=== PATIENT | male | born 1960 | race Hispanic/Latino ===

== ENCOUNTER → 2017-08-31 | Outpatient (CLI) | payer BC ==
[~2017-08-31] MED LIST: IOPAMIDOL 370 MG/ML 200 ML INFUS..BTL INJ ONE; SODIUM CHLORIDE 0.9% 50ML 50 ML ONE
[2017-08-31 15:29] LABS: BLOOD UREA NITROGEN 13 mg/dL (7-26); BUN/CREATININE RATIO 14 (6-25); CREATININE, SERUM 0.91 mg/dL (0.72-1.25); EST GLOMERULAR FILTRATION RATE > 60 ML/MIN (60-)
--- NOTE | 2017-08-31 18:52 | Diagnostic Imaging Report ---
EXAM: CT Abdomen WITHOUT and WITH contrast INDICATION: COMPARISON: None. TECHNIQUE: Abdomen was scanned utilizing a multidetector helical scanner from the lung base to the iliac crests before and after administration of IV contrast. Coronal and sagittal reformations were obtained. Pancreas mass protocol was performed. Scan was performed pre- through the liver, arterial phase through the liver and venous phase through the abdomen IV CONTRAST: 100 mL of Isovue 300 ORAL CONTRAST: Water COMPLICATIONS: None FINDINGS: LINES and TUBES: None. LOWER THORAX: Unremarkable HEPATOBILIARY: Diffuse hepatic steatosis. 1.7 cm fluid density simple cyst in hepatic segment II (series 3, image 77). 0.9 cm fluid density simple cyst in hepatic segment VIII (series 3, image 78). Subcentimeter hypodensity in hepatic segment VII (series 3, image 80), which is too small to characterize but likely represents a small cyst. Calcified granuloma in hepatic segment VII (series 3, image 76). No biliary ductal dilation. GALLBLADDER: No radio-opaque stones or sludge. No wall thickening. SPLEEN: No splenomegaly. PANCREAS: Normal pancreatic parenchymal enhancement. No peripancreatic fat stranding/inflammatory changes or free fluid. No ductal dilation. There is an approximately 4.7 x 2.6 x 3.1 cm lobulated nonenhancing fluid density lesion with questionable thin septation with perceived but not measurable enhancement in the uncinate process (series 3, image 102 and sagittal venous image 66). No enhancing mural nodules are identified. No internal or peripheral calcifications. This lesion measured approximately 2.3 x [address] dated 10/09/2010. No other focal lesions. ADRENALS: No adrenal nodules KIDNEYS/URETERS: Kidneys enhance symmetrically. 1.9 x 2.0 x 2.4 cm heterogeneously enhancing mass in the anterior interpolar right kidney (series 3, image 96 and venous sagittal image 88). No other solid masses. 3-4 mm nonobstructing calculus in the superior right kidney (series 2, image 25). 3 mm nonobstructing calculus in the right interpolar region (series 2, image 30) . 8 mm nonobstructing calculus in the mid to inferior left kidney (series 2, image 26). Punctate nonobstructing calculus in the left inferior pole (series 2, image 30). No ureteral calculi, hydronephrosis or obstruction. GI TRACT: No bowel dilation or evidence of obstruction. No pericolonic inflammatory changes. Scattered diverticula in the descending colon, without diverticulitis. Appendix is normal. LYMPH NODES: No lymphadenopathy. VESSELS: Celiac trunk, superior and inferior mesenteric and bilateral renal arteries are patent. Accessory right renal artery to the inferior pole. Portal, superior mesenteric and splenic veins are patent. PERITONEUM / RETROPERITONEUM: No free air or fluid. BONES: No aggressive lytic lesions. Degenerative changes in the lower lumbosacral spine. SOFT TISSUES: Unremarkable. IMPRESSION: 1. No CT evidence of pancreatitis. Please note that the pancreas may have a normal CT appearance in cases of mild pancreatitis 2. Lobulated 4.7 cm nonenhancing fluid density lesion in the pancreatic uncinate process. Differential diagnosis includes serous cystadenoma, given the questionable thin septations and increase in size, pseudocyst (particularly if there is prior history of pancreatitis), mucinous cystic neoplasm or IPMN. Recommend contrast enhanced MRI abdomen for further evaluation. 3. 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 4. Bilateral nonobstructing renal calculi, as described. No ureteral calculi, hydronephrosis or obstruction. 5. Diffuse hepatic steatosis. Signed by: Dr. Gerhard Flores M.D. on 08/31/2017 6:48 PM
== END ==
LOC: CT 14:23
PROVIDERS: ATTEND Internal Medicine Gastroenterology
DX: R74.8 Abnormal levels of other serum enzymes (principal)
CPT/HCPCS: 36415; 74170; 82565; 84520; Q9967

== ENCOUNTER 2022-06-13 05:34 | Observation (INO) | payer BC, OTHER ==
[~2022-06-13] VITALS: Ht 180.3 cm; Wt 101.6 kg
[2022-06-13] MEDS ORDERED: HYDRALAZINE HCL 20 MG/ML VIAL IV ONE (06:00)
[2022-06-13] MEDS ORDERED: ASPIRIN 81 MG CHEW TAB PO STA (06:25)
[2022-06-13] MEDS ORDERED: ASPIRIN 81 MG CHEW TAB ONE (06:45)
[2022-06-13] MEDS ORDERED: POTASSIUM CHLORIDE 10MEQ EA PO ONE (07:00)
[2022-06-13] MEDS ORDERED: POTASSIUM CHLORIDE 20 MEQ TAB CR PO STA (07:06)
[2022-06-13] MEDS ORDERED: ASPIRIN 81 MG CHEW TAB PO ONE (07:30)
[2022-06-13] MEDS ORDERED: SODIUM CHLORIDE FLUSH 10 ML SYR INJ PRN (07:30)
[2022-06-13 09:23] VITALS: BP 146/97
[2022-06-13 09:54] VITALS: BP 146/97
[2022-06-13] MEDS ORDERED: DOXAZOSIN MESYLA2 MG PO (10:29)
[2022-06-13] MEDS ORDERED: METFORMIN HCL500 MG PO (10:29)
[2022-06-13] MEDS ORDERED: bethanechol PO (10:29)
[2022-06-13] MEDS ORDERED: BETHANECHOL CHLORIDE PO (10:29)
[2022-06-13] MEDS ORDERED: NIFEDIPINE ER30 M1 PO (10:29)
[2022-06-13 11:37] LABS: CREATINE KINASE 78 IU/L (30-200)
[2022-06-13 12:19] VITALS: BP 123/82
[2022-06-13] MEDS ORDERED: CLOPIDOGREL BISULFATE 75 MG TAB PO ONE (14:30)
[2022-06-13] MEDS ORDERED: DOCUSATE SODIUM 100 MG CAP PO PRN (15:00)
[2022-06-13] MEDS ORDERED: SIMETHICONE 80 MG CHEW PO PRN (15:00)
[2022-06-13] MEDS ORDERED: MELATONIN 5 MG TABLET PO PRN (15:00)
[2022-06-13] MEDS ORDERED: LIDOCAINE 4% PATCH TP PRN (15:00)
[2022-06-13] MEDS ORDERED: POTASSIUM CHLORIDE 20 MEQ TAB CR PO PRN (15:00)
[2022-06-13] MEDS ORDERED: ALBUTEROL/IPRATROPIUM 3 ML NEB NEB PRN (15:00)
[2022-06-13] MEDS ORDERED: DIPHENHYDRAMINE HCL 25 MG CAP PO PRN (15:00)
[2022-06-13] MEDS ORDERED: ACETAMINOPHEN 325 MG TAB PO PRN (15:00)
[2022-06-13] MEDS ORDERED: DEXTROSE 50% SYRINGE 50 ML IV PRN ×2 (15:00)
[2022-06-13] MEDS ORDERED: ONDANSETRON HCL INJ 2MG/ML 2ML 2 MG/ML VIAL IV PRN (15:00)
[2022-06-13] MEDS ORDERED: HYDROCODONE/APAP 5MG-325MG TAB PO PRN (15:00)
[2022-06-13] MEDS ORDERED: BENZONATATE 100 MG CAP PO PRN (15:00)
[2022-06-13 15:57] VITALS: BP 131/84
[2022-06-13] MEDS: INSULIN LISPRO 100 UNIT/1 ML 3ML VIAL SQ SCH ×2 (16:49→20:29)
[2022-06-13] MEDS: LORATADINE 10 MG TAB PO SCH (16:51)
[2022-06-13] MEDS ORDERED: ENOXAPARIN SOD INJ 40 MG/0.4 ML SYR SC SCH (17:00)
[2022-06-13 17:50] LABS: CREATINE KINASE 57 IU/L (30-200)
[2022-06-13] MEDS: FLUTICASONE PROPIONATE NASAL SPRAY NS SCH (18:12)
[2022-06-13 19:56] VITALS: BP 136/86
[2022-06-13 20:07] VITALS: BP 136/86
[2022-06-13] MEDS ORDERED: NIFEDIPINE CR 30 MG TAB PO SCH (21:00)
[2022-06-13] MEDS ORDERED: DOXAZOSIN MESYLATE 2 MG TAB PO SCH (21:00)
[2022-06-14] VITALS: BP 126/80
[2022-06-14 00:26] LABS: CREATINE KINASE 44 IU/L (30-200)
[2022-06-14 04:00] VITALS: BP 167/84
[2022-06-14 05:11] LABS: BASOPHILS % 0.5 % (0.0-1.0); EOSINOPHILS # (AUTO) 0.7 (0.0-0.4); EOSINOPHILS % 9.2 % (0.0-6.0); HEMATOCRIT 41.7 % (38.2-49.6); HEMOGLOBIN 13.8 g/dL (14.0-18.0); LYMPHOCYTES # (AUTO) 1.9 (1.0-3.2); LYMPHOCYTES % 24.2 % (18.0-39.1); MEAN CORPUSCULAR HEMOGLOBIN 28.3 pg (28-32); MEAN CORPUSCULAR HGB CONC 33.1 g/dL (31-35); MEAN CORPUSCULAR VOLUME 85.5 fL (81-99); MONOCYTES # (AUTO) 0.6 (0.2-0.8); MONOCYTES % 7.4 % (4.4-11.3); NEUTROPHILS # (AUTO) 4.6 (2.1-6.9); NEUTROPHILS % 58.4 % (38.7-80.0); PLATELET COUNT 273 x10e3/uL (140-360); RED BLOOD COUNT 4.88 x10e6/uL (4.3-5.7); RED CELL DISTRIBUTION WIDTH 14.7 % (11.7-14.4)
[2022-06-14 05:38] LABS: ALBUMIN 3.4 g/dL (3.5-5.0); ALBUMIN/GLOBULIN RATIO 1.1 (0.8-2.0); ANION GAP 13.3 mmol/L (8-16); CALCIUM 8.9 mg/dL (8.4-10.2); CREATININE, SERUM 0.89 mg/dL (0.72-1.25); POTASSIUM 3.3 mmol/L (3.5-5.1)
[2022-06-14 05:39] LABS: CHOL/HDL RATIO 4.2 (3.9-4.7); MAGNESIUM 1.8 MG/DL (1.3-2.1); PHOSPHORUS 2.8 MG/DL (2.3-4.7)
[2022-06-14 06:01] LABS: THYROID STIMULATING HORMONE 0.595 uIU/mL (0.350-4.940)
[2022-06-14] MEDS ORDERED: PANTOPRAZOLE SOD 40 MG TABEC PO SCH (07:30)
[2022-06-14 08:51] VITALS: BP 131/83
[2022-06-14] MEDS ORDERED: ASPIRIN 81 MG ENTERIC COATED PO SCH (09:00)
[2022-06-14] MEDS ORDERED: NIFEDIPINE CR 30 MG TAB PO SCH (09:00)
[2022-06-14] MEDS ORDERED: CLOPIDOGREL BISULFATE 75 MG TAB PO SCH (09:00)
[2022-06-14] MEDS ORDERED: METOPROLOL SUCCINATE 25 MG TAB XL PO SCH (09:00)
[2022-06-14] MEDS ORDERED: LOSARTAN POTASSIUM 100 MG TAB PO SCH (09:00)
[2022-06-14 09:11] VITALS: BP 131/83
[2022-06-14] MEDS: LORATADINE 10 MG TAB PO SCH (10:07)
[2022-06-14] MEDS: FLUTICASONE PROPIONATE NASAL SPRAY NS SCH (10:09)
[2022-06-14] MEDS: INSULIN LISPRO 100 UNIT/1 ML 3ML VIAL SQ SCH ×2 (10:12→12:08)
[2022-06-14 12:12] VITALS: BP 136/88
[2022-06-14] MEDS ORDERED: LOSARTAN POTAS100 MG PO (14:55)
[2022-06-14] MEDS ORDERED: ASPIRIN81 MG PO (14:55)
[2022-06-14] MEDS ORDERED: NIFEDIPINE ER30 M1 PO (14:56)
[2022-06-14] MEDS ORDERED: LORATADINE10 MG PO (14:56)
[2022-06-14] MEDS ORDERED: CLOPIDOGREL75 MG PO (14:58)
[2022-06-14] MEDS ORDERED: TOPROL XL25 MG PO (14:58)
[2022-06-14] MEDS ORDERED: ATORVASTATIN CA20 MG PO (14:59)
== END 2022-06-14 13:30 | disposition home or self-care (01) ==
LOC: FSED 05:53 → ERHOLD 07:57 → MED/SURG 09:17
PROVIDERS: ADMIT Internal Medicine; ATTEND Internal Medicine
DX: R07.9 Chest pain, unspecified (principal); I10 Essential (primary) hypertension; E11.9 Type 2 diabetes mellitus without complications; J30.2 Other seasonal allergic rhinitis; I25.10 Atherosclerotic heart disease of native coronary artery without angina pectoris; Z98.61 Coronary angioplasty status; E87.6 Hypokalemia; Z71.3 Dietary counseling and surveillance; Z71.89 Other specified counseling; Z20.822 Contact with and (suspected) exposure to COVID-19; Z91.041 Radiographic dye allergy status; Z79.84 Long term (current) use of oral hypoglycemic drugs; Z79.02 Long term (current) use of antithrombotics/antiplatelets; Z79.82 Long term (current) use of aspirin; Z79.899 Other long term (current) drug therapy; Z68.31 Body mass index [BMI] 31.0-31.9, adult; Z90.5 Acquired absence of kidney; Z87.442 Personal history of urinary calculi; Z82.3 Family history of stroke
CPT/HCPCS: 36415 ×2; 71046; 80053 ×2; 80061; 81003; 82550; 82553; 82948 ×2; 83036; 83735; 83880; 84100; 84443; 84484; 85025 ×2; 93005; 94799 ×2; 99284; G0378 ×2; J1650; S0164; U0002